=== PATIENT | female | born 1980 | race Caucasian/White ===

== ENCOUNTER 2018-01-23 07:23 | Day surgery (SDC) | payer OTHER ==
[~2018-01-23] VITALS: Ht 170.2 cm; Wt 64.8 kg
[~2018-01-23 07:23] MED LIST: LEXAPRO20 MG PO; MAXALT5 MG PO; Motrin PO; TOPAMAX25 MG PO
[2018-01-23 07:53] VITALS: BP 119/79
[2018-01-23 11:00] VITALS: BP 144/58
[2018-01-23 11:05] VITALS: BP 123/82
[2018-01-23 11:58] VITALS: BP 127/65
== END 2018-01-23 12:21 | disposition home or self-care (01) ==
LOC: SDC
DX: Z30.2 Encounter for sterilization (principal); N75.0 Cyst of Bartholin's gland; F41.8 Other specified anxiety disorders; Z80.41 Family history of malignant neoplasm of ovary; Z80.42 Family history of malignant neoplasm of prostate
CPT/HCPCS: 87070; 87075; 87205; 93005; J1100; J1885; J2250; J2405; J2710; J3010; J7643; S0020